=== PATIENT | female | born 1940 | race Caucasian/White ===

== ENCOUNTER 2016-09-07 13:51 | Emergency (ER) | payer MEDICARE ==
[~2016-09-07] VITALS: Ht 157.5 cm; Wt 104.3 kg
[2016-09-07 13:54] VITALS: BP 139/74
--- NOTE | 2016-09-07 14:22 | PHYS DOC ---
Adult General Chief Complaint Chief Complaint: HIP PAIN HPI HPI This 76-year-old lady presents with right hip pain.. She states that 10 weeks ago and before that she broke her right hip however x-rays and CTs did not show the fracture but finally MRI did show the fracture. She had a operation at [facility] in [facility] and they apparently pinned her hip that time. Since discharge she has been doing physical therapy and has been getting along quite well however she skipped her physical therapy 2 days then yesterday had physical therapy and had quite a PT session and since continued to have pain in the right hip. She has been unable to weight bear on her hip or get up and get around or get off the toilet today because of her severe pain in her hip. She was supposed to go to [facility] however she has appeared [facility] because she told the ambulance that is where she wanted to go Review of Systems Review of Systems Constitutional: Denies fever or chills [] Eyes: Denies change in visual acuity, redness, or eye pain [] HENT: Denies nasal congestion or sore throat [] Respiratory: Denies cough or shortness of breath [] Cardiovascular: No additional information not addressed in HPI [] GI: Denies abdominal pain, nausea, vomiting, bloody stools or diarrhea [] : Denies dysuria or hematuria [] Musculoskeletal: Denies back pain or joint pain severe pain to any movement of the right hip Integument: Denies rash or skin lesions [] Neurologic: Denies headache, focal weakness or sensory changes [] Endocrine: Denies polyuria or polydipsia [] Current Medications Current Medications Current Medications Medications (Trade) Dose Ordered Sig/[facility] Start Time Stop Time Status Last Admin Dose Admin Morphine Sulfate (Morphine 4mg Syringe) 4 mg 1X ONCE 09/07/16 14:15 09/07/16 14:16 UNV Ondansetron HCl (Zofran) 4 mg 1X ONCE 09/07/16 14:15 09/07/16 14:16 UNV Physical Exam Physical Exam Constitutional: Well developed, well nourished, no acute distress, non-toxic appearance. Morbidly obese HENT: Normocephalic, atraumatic, bilateral external ears normal, oropharynx moist, no oral exudates, nose normal. [] Eyes: PERRLA, EOMI, conjunctiva normal, no discharge. [] Neck: Normal range of motion, no tenderness, supple, no stridor. [] Cardiovascular:Heart rate regular rhythm, no murmur [] Lungs & Thorax: Bilateral breath sounds clear to auscultation [] Abdomen: Bowel sounds normal, soft, no tenderness, no masses, no pulsatile masses. [] Skin: Warm, dry, no erythema, no rash. [] Back: No tenderness, no CVA tenderness. [] Extremities: No tenderness, no cyanosis, no clubbing, ROM intact, no edema. Severe tenderness to movement of the right hip Neurologic: Alert and oriented X 3, normal motor function, normal sensory function, no focal deficits noted. [] Psychologic: Affect normal, judgement normal, mood normal. [] EKG EKG [] Radiology/Procedures Radiology/Procedures [] Impressions: Severe right hip pain Course & Med Decision Making Course & Med Decision Making CT scan of the right hip was negative for abnormalities Synopsis reveals this lady has had a hip fracture 10 weeks ago after getting an MRI to fully define the fracture she had it pinned She's been doing okay until she fell 2 weeks ago which was a minor fall She has been doing physical therapy until 2 days ago when she laid off a day and then had an intense session yesterday Today she can't walk she cannot get off the toilet she has severe right hip pain Because of her pain she presents to our emergency room CT of her hip here is negative I have talked with follows her He would like her [facility] I have called the hospitalist Dr. Cabello who will accept the patient in transfer [] Dragon Disclaimer Dragon Disclaimer This chart was dictated in whole or in part using Voice Recognition software in a busy, high-work load, and often noisy Emergency Department environment. It may contain unintended and wholly unrecognized errors or omissions. NAVEEN MEADE MD Sep 07, 2016 14:22
[2016-09-07] MEDS ORDERED: MORPHINE SULFATE 4 MG/ML DISP.SYRIN. IV ONE ×2 (14:45→18:15)
[2016-09-07] MEDS ORDERED: ONDANSETRON PF 4 MG/2 ML VIAL. IV ONE (14:45)
--- NOTE | 2016-09-07 14:50 | RAD ---
CT of the right hip without contrast, 09/07/2016: History: Severe right hip pain, previous surgery. Noncontrast scans were obtained with multiplanar reconstructions produced. There are 3 surgical pins in the right hip. Their tips lie well beneath the articular cortex of the femoral head. There are some associated artifacts. There is a small cortical defect along the lateral aspect of the base of the femoral neck anteriorly. There is a small linear lucency in the anterior cortex of the proximal femur in the subtrochanteric region. There is also a small linear lucency in the posterior cortex in the subtrochanteric region. Reportedly the patient's hip surgery was in June of this year. These probably represent incompletely healed fracture lines. No imaging from the time of the fracture is currently available for correlative purposes. There is mild degenerative change at the right hip joint. There is streaky increased density in the subcutaneous soft tissues laterally compatible with residual postsurgical hemorrhage or scarring. IMPRESSION: 1. Surgical pins at the right hip with normal bony alignment. 2. Several nondisplaced cortical lucencies at the right hip as described above compatible with incompletely healed fracture lines. A refracture is less likely. 2. Postsurgical change in the subcutaneous soft tissues laterally. PQRS Compliance Statement: One or more of the following individualized dose reduction techniques were utilized for this examination: 1. Automated exposure control 2. Adjustment of the mA and/or kV according to patient size 3. Use of iterative reconstruction technique
--- NOTE | 2016-09-07 14:54 | RAD ---
Portable chest, 09/07/2016: History: Right hip pain The heart size and pulmonary vascularity are normal. There is calcific plaquing and tortuosity of the thoracic aorta. No pulmonary infiltrates are seen. There appears to be a calcified granuloma laterally in the right lung. There is no evidence of pleural fluid or pneumothorax. IMPRESSION: 1. Aortic atherosclerosis. 2. No acute cardiopulmonary abnormality is detected.
[2016-09-07 15:23] LABS: BASO % 0 % (0-3); EOS % 1 % (0-3); HEMATOCRIT 35.6 % (36.0-47.0); HEMOGLOBIN 11.7 g/dL (12.0-15.5); LYMPH % 12 % (24-48); MEAN CORPUSCULAR HEMOGLOBIN 29 pg (25-35); MEAN CORPUSCULAR HGB CONC 33 g/dL (31-37); MEAN CORPUSCULAR VOLUME 89 fL (79-100); MONO # 0.6 x10^3/uL (0.0-1.1); MONO % 8 % (0-9); NEUT # 6.4 x10^3uL (1.8-7.7); NEUT % 80 % (31-73); PLATELET COUNT 184 x10^3/uL (140-400); RED BLOOD COUNT 3.99 x10^6/uL (3.50-5.40)
[2016-09-07 15:26] LABS: ALBUMIN 3.5 g/dL (3.4-5.0); ALBUMIN/GLOBULIN RATIO 0.9 (1.0-1.7); CALCIUM 8.9 mg/dL (8.5-10.1); CREATININE 1.3 mg/dL (0.6-1.0); POTASSIUM 3.8 mmol/L (3.5-5.1); TOTAL BILIRUBIN 0.4 mg/dL (0.2-1.0); TOTAL PROTEIN 7.5 g/dL (6.4-8.2)
== END 2016-09-07 19:15 | disposition short-term general hospital (02) ==
LOC: ER 13:51
DX: M25.551 Pain in right hip (principal)
CPT/HCPCS: 36415; 71010; 73700; 80053; 85027; 96374; 96375; 96376; 99285; J2270; J2405